=== PATIENT | female | born 1985 | race Caucasian/White ===

== ENCOUNTER 2016-12-10 18:28 | Emergency (ER) | payer MEDICAID ==
[~2016-12-10] VITALS: Ht 154.9 cm; Wt 93.4 kg
[~2016-12-10 18:28] MED LIST: IBUP-974 PO; IRON65TA3 PO; PREN-385 PO
[2016-12-10 19:51] VITALS: BP 117/61
--- NOTE | 2016-12-10 20:24 | NUR ---
PATIENT LEFT WITHOUT BEING SEEN BY DR. WALKER. NO FURTHER CARE PROVIDED FOR PATIENT.
== END 2016-12-10 20:24 | disposition left against medical advice (07) ==
LOC: MED 18:28
DX: H57.11 Ocular pain, right eye (principal); Z53.21 Procedure and treatment not carried out due to patient leaving prior to being seen by health care provider

== ENCOUNTER 2020-10-19 21:45 | Emergency (ER) | payer MEDICAID ==
[~2020-10-19] VITALS: Ht 157.5 cm; Wt 88.0 kg
[~2020-10-19 21:45] MED LIST changes: +FERR-212 PO; -IRON65TA3 PO
[2020-10-19 22:02] VITALS: BP 142/83
[2020-10-19 22:55] LABS: BASOPHILS # (AUTO) 0.1 K/uL (0.00-0.22); BASOPHILS % (AUTO) 0.6 % (0.0-2.0); EOSINOPHILS # (AUTO) 0.1 K/uL (0-0.4); EOSINOPHILS % (AUTO) 0.8 % (0.0-4.0); HEMATOCRIT 40.4 % (36-48); HEMOGLOBIN 13.7 g/dL (12.0-16.0); LYMPHOCYTES # (AUTO) 3.8 K/uL (2.5-16.5); LYMPHOCYTES % (AUTO) 34.4 % (20.5-51.1); MEAN CORPUSCULAR HEMOGLOBIN 33 pg (27-31); MEAN CORPUSCULAR HGB CONC 34 g/dL (33-37); MEAN CORPUSCULAR VOLUME 95.5 fL (80-94); MONOCYTES # (AUTO) 0.6 K/uL (0.8-1.0); MONOCYTES % (AUTO) 5.2 % (1.7-9.3); NEUTROPHILS # (AUTO) 6.6 K/uL (1.8-7.7); PLATELET COUNT (AUTO) 283 K/uL (140-450); RED BLOOD CELL COUNT(AUTO) 4.23 MIL/uL (4.20-5.40); RED CELL DISTRIBUTION WIDTH 12.5 % (11.6-13.7); WHITE BLOOD COUNT (AUTO) 11.1 K/uL (4.8-10.8)
--- NOTE | 2020-10-19 23:04 | NUR ---
PT AMBULATED TO BED 9
--- NOTE | 2020-10-19 23:12 | NUR ---
34/F PAITENT BIB SELF FOR C/O INTERMITTENT SOB X 2 WEEKS. PER PATIENT HAS ALSO HAD DECRESED APPETITIE AND WEAKNESS. PT ALSO COMPLAINING OF HEADACHE AND DRY COUGH. MEDHX: DENIES NKA
[2020-10-19 23:28] LABS: ALBUMIN 4.4 g/dL (3.4-5.0); ANION GAP 10.8 (8-16); CARBON DIOXIDE 29.3 mmol/L (21-32); CREATININE 0.7 mg/dL (0.6-1.3); POTASSIUM 4.1 mmol/L (3.5-5.1); TOTAL BILIRUBIN 0.2 mg/dL (0.0-1.0)
--- NOTE | 2020-10-20 00:28 | NUR ---
EKG PERFORMED AT BEDSIDE. EKG READS SINUS RHYTHM @ 74
--- NOTE | 2020-10-20 01:12 | NUR ---
FLU AND BHAVYA SWAB COLLECTED AND SENT TO LAB
[2020-10-20 02:45] VITALS: BP 142/83
--- NOTE | 2020-10-20 02:45 | NUR ---
Patient discharged with v/s stable. Written and verbal after care instructions given and explained. Patient verbalized understanding. Ambulatory with steady gait. All questions addressed prior to discharge. Advised to follow up with PMD.
== END 2020-10-20 02:45 | disposition home or self-care (01) ==
LOC: MED 21:45
DX: R05 Cough (principal); Z20.822 Contact with and (suspected) exposure to COVID-19; F41.9 Anxiety disorder, unspecified
CPT/HCPCS: 36415; 71045; 80053; 81002; 81025; 85025; 87804; 93005; 99285